=== PATIENT | female | born 1970 | race Caucasian/White ===

== ENCOUNTER → 2024-04-02 12:58 | Outpatient (REF) | payer OTHER, SELFPAY | LOC: WDC 12:58 | PROVIDERS: ATTENDING PHYSICIAN Internal Medicine | DX: Z12.31 Encounter for screening mammogram for malignant neoplasm of breast (principal) | CPT/HCPCS: 77063; 77067 ==

== ENCOUNTER → 2025-05-07 12:59 | Outpatient (REF) | payer OTHER, SELFPAY | LOC: WDC 12:59 | PROVIDERS: ATTENDING PHYSICIAN Internal Medicine | DX: Z12.31 Encounter for screening mammogram for malignant neoplasm of breast (principal) | CPT/HCPCS: 77063; 77067 ==